=== PATIENT | female | born 1980 | race Caucasian/White ===

== ENCOUNTER 2017-11-13 19:56 | Emergency (ER) | payer MEDICAID, OTHER ==
[~2017-11-13] VITALS: Ht 154.9 cm; Wt 64.0 kg
[2017-11-13 20:00] VITALS: BP 155/90
== END 2017-11-13 21:29 | disposition left against medical advice (07) ==
LOC: ER 20:12
DX: R42 Dizziness and giddiness (principal); Z53.21 Procedure and treatment not carried out due to patient leaving prior to being seen by health care provider

== ENCOUNTER 2018-09-23 01:57 | Emergency (ER) | payer OTHER ==
[~2018-09-23] VITALS: Ht 167.6 cm; Wt 73.1 kg
[2018-09-23] MEDS ORDERED: SODIUM CHLORIDE 0.9% 1,000 ML IV ONE (06:21)
[2018-09-23] MEDS ORDERED: MORPHINE SULFATE 4 MG/ML CPJ (NOT FOR IM USE) IV STA (06:21)
[2018-09-23] MEDS ORDERED: METOCLOPRAMIDE HCL 10MG/2ML VIAL IV STA (06:21)
[2018-09-23 06:50] LABS: CHLORIDE 107 mEq/L (98-107)
[2018-09-23 07:11] LABS: BASOPHILS % 0.3 % (0.0-2.0); EOSINOPHILS % 2.2 % (0.0-5.0); HEMATOCRIT. 34.2 % (36.0-48.0); HEMOGLOBIN. 10.7 g/dL (12.0-16.0); LYMPHOCYTES % 13.4 % (20.0-50.0); MEAN CORPUSCULAR HEMOGLOBIN 23.3 pg (28.0-32.0); MEAN CORPUSCULAR VOLUME 74.5 fL (81.0-99.0); MEAN PLATELET VOLUME 8.7 fl (7.4-10.4); MONOCYTES % 4.9 % (2.0-8.0); NEUTROPHILS % 79.2 % (40.0-76.0); PLATELET 261 x1000/uL (130-400); RED BLOOD CELL COUNT 4.59 mill/uL (4.2-5.4); RED CELL DISTRIBUTION WIDTH 17.2 % (11.6-14.6)
[2018-09-23] MEDS ORDERED: IOHEXOL-300 100 ML BOTTLE ONE (07:35)
[2018-09-23] MEDS ORDERED: LEVOFLOXACIN 750MG PREMIX 150 ML IV ONE (08:15)
[2018-09-23] MEDS ORDERED: METRONIDAZOLE 500 MG PREMIX 100 ML IV ONE (08:15)
[2018-09-23 08:31] LABS: CLARITY URINE CLOUDY (CLEAR); COLOR URINE YELLOW (YELLOW); KETONES URINE NEGATIVE (NEGATIVE); LEUKOCYTE ESTERASE URINE NEGATIVE (NEGATIVE); NITRITE URINE NEGATIVE (NEGATIVE); OCCULT BLOOD URINE NEGATIVE (NEGATIVE); PROTEIN URINE NEGATIVE (NEGATIVE); SPECIFIC GRAVITY URINE 1.019 (1.005-1.030); UROBILINOGEN URINE 0.2 E.U./dL (0.2-1.0)
[2018-09-23 10:22] VITALS: BP 100/51
== END 2018-09-23 10:25 | disposition home or self-care (01) ==
LOC: ER 01:57
DX: K57.32 Diverticulitis of large intestine without perforation or abscess without bleeding (principal); R73.9 Hyperglycemia, unspecified
CPT/HCPCS: 36415; 74177; 80053; 81003; 81025; 85025; 96361; 96365; 96366; 96368; 96375; 99284; J1956; J2270; J2765; J3490; J7030; Q9967

== ENCOUNTER 2021-02-20 15:21 | Emergency (ER) | payer OTHER ==
[~2021-02-20] VITALS: Ht 157.5 cm; Wt 73.0 kg
[2021-02-20 15:23] VITALS: BP 141/84
[2021-02-20] MEDS ORDERED: OXYC10TA85 PO (15:26)
== END 2021-02-20 17:22 | disposition left against medical advice (07) ==
LOC: ER 15:29
DX: R68.89 Other general symptoms and signs (principal); Z53.21 Procedure and treatment not carried out due to patient leaving prior to being seen by health care provider